=== PATIENT | male | born 1975 | race Caucasian/White ===

== ENCOUNTER 2020-11-10 06:03 | Emergency (ER) | payer OTHER, SELFPAY ==
[2020-11-10 06:13] VITALS: BP 120/78; PULSE 60; RESP 18; TEMP 36.7; O2SAT 98; BMI 38.3
--- NOTE | 2020-11-10 07:04 | ED.EYEPROB ---
HPI - Eye Problem General Chief complaint: Eye Problems Stated complaint: eye pain Time Seen by Provider: 11/10/20 07:04 Source: patient Mode of arrival: ambulatory Limitations: no limitations History of Present Illness chief complaint: eye pain, eye redness, eye injury and foreign body Onset (ago): day(s) (Sunday) Onset description: sudden Duration: constant Location: right eye Eye Symptoms: burning, redness, pain and foreign body sensation Place: home Mechanism: direct trauma Severity: moderate If Pain, Quality: burning Context: trauma Associated symptoms: none Treatments Prior to Arrival: none Related Data Previous Rx's Medication Instructions Recorded erythromycin 5 mg/gram (0.5 %) eye 0.5 inch OPHTHALMIC (EYE) TID #3.5 11/10/20 ointment g Allergies Allergy/AdvReac Type Severity Reaction Status Date / Time No Known Allergies Allergy Verified 11/10/20 06:13 [No Known Allergies*] Review of Systems Review of Systems: Constitutional : No Weight loss, No Fever, No Chills ENT/Mouth : No sore throat, No Rhinorrhea Eyes: No Swelling, pos Redness Cardiovascular : No Chest Pain, No SOB, NoEdema Respiratory : No Cough, No Sputum, No Wheezing Gastrointestinal : no Nausea, no Vomiting, no Diarrhea, positive abdominal Pain, No Hematochezia, No Melena Skin : No Skin Lesions, No rash Neuro : No Weakness, No Numbness, No Dizziness, No Headache PMFSH Past Medical History Attestation statement: The following information was validated with the patient. Medical History No active medical problems Social History Social History (Updated 11/10/20 @ 07:16 by Debbie Masters DO) Patient Tobacco Use Status: Never used Tobacco Advance Directives: No Advance Directives Information Provided: No Physical Exam Vital Signs: Vital Signs: Last Vital Signs Temp 98.0 F 11/10/20 06:13 Pulse 60 11/10/20 06:13 Resp 18 11/10/20 06:13 BP 120/78 11/10/20 06:13 Pulse Ox 98 11/10/20 06:13 Body Mass Index 38.3 Appearance: Alert. Oriented X3. No acute distress. Eyes: Pupils equal, round and reactive to light. R eye injected sclera FB seen to naked eye over 2 o clock position ENT: Pharynx normal. Neck: Normal inspection. Neck supple. CVS: Normal heart rate and rhythm. Pulses normal. Respiratory: No respiratory distress. Breath sounds normal. Abdomen: Soft and nontender Skin: Skin warm and dry. Normal skin color. Normal skin turgor. Extremities: No lower extremity edema. No calf ttp Neuro: Oriented X 3. No motor deficit. No sensory deficit. Course Course Course Narrative: unable to remove metal fragment from R eye - with moistened q tip, retained no rust ring noted will need ophtho MDM - Eye Problem MDM Narrative Medical decision making narrative: 45 yo male with trauma to R eye - no lens wear think it was a FB - at this time will need eye exam denies vision change. dispo per results and exam Discharge Plan Discharge Clinical Impression: Eye foreign body Qualifiers: Encounter type: initial encounter Laterality: right Qualified Code(s): T15.91XA - Foreign body on external eye, part unspecified, right eye, initial encounter Patient Disposition: Home, Self-Care Instructions: Eye Foreign Body (ED) Additional Instructions: there is still a retained piece of metal in your eye you need to see an eye doctor ELLIOTT you can see any eye doctor Prescriptions: New erythromycin 5 mg/gram (0.5 %) ointment 0.5 inch ophthalmic (eye) TID Qty: 3.5 RF: 0 Referrals: Jae Finn MD [Physician] - 1 day (try to call today for any appointment) Stand Alone Forms: Work/School Release
[2020-11-10] MEDS: Tetracaine HCl/PF 0.5% Oph Sol 4 ML DROPS 3 DROP EYE-BOTH (07:30)
[2020-11-10] MEDS: Fluorescein Sodium STRIP 1 STRIP EYE-LEFT (07:31)
[2020-11-10] MEDS: Erythromycin Base 0.5% Oph Oin 1 GM TUBE 1 CM EYE-RIGHT (07:57)
== END 2020-11-10 08:00 | disposition home or self-care (01) ==
PROVIDERS: Emergency Provider Emergency Medicine
DX: H57.13 Ocular pain, bilateral (principal); T15.01XA Foreign body in cornea, right eye, initial encounter; X58.XXXA Exposure to other specified factors, initial encounter; Y93.9 Activity, unspecified; Y92.9 Unspecified place or not applicable; Y99.9 Unspecified external cause status; Z79.899 Other long term (current) drug therapy
CPT/HCPCS: 99283

== ENCOUNTER 2021-12-24 03:49 | Emergency (ER) | payer OTHER, SELFPAY ==
--- NOTE | ~2021-12-24 | XR_ITS ---
EXAMINATION: XR LUMBOSACRAL SPINE CLINICAL INFORMATION: Back pain COMPARISON: None TECHNIQUE: Three views of the lumbosacral spine. FINDINGS: Vertebral body heights and disc spaces are maintained. Mild diffuse spondylosis predominating at the thoracolumbar junction. No malalignment. Nonobstructive gas pattern. Probable vascular calcifications in the pelvis. XR/XR lumbar spine 2-3V IMPRESSION: Mild degenerative disease.
[2021-12-24 04:04] VITALS: BP 137/84; PULSE 86; RESP 16; TEMP 36.7; O2SAT 97; BMI 39.4
--- OUTSIDE RECORDS SUMMARY | 2021-12-24 04:24 | XMS_ITS | Continuity of Care Document ---
:1975 Author Organization [facility] Address [address] [place] [id number]- Care Team Providers Name Role Phone Juan Ballesteros III, MD Primary Care Physician Encounter [facility] [place] Date(s): 11/10/20 - 11/10/[address] [address]- Discharge Disposition: A-D/C Walkout Attending Physician: Not on Staff, Attending MD Admitting Physician: Not on Staff, Admitting MD Referring Physician: Not on Staff, Referring MD Allergies, Adverse Reactions, Alerts Substance Reaction Severity Status NKA Active Immunizations Given and Recorded Vaccine Date Status Refusal Reason tetanus/diphtheria/pertussis, acel(Tdap) 08/08/19 Given Vital Signs Most recent to oldest [Reference Range]: 1 2 Oxygen Saturation [94-100 %] 95 % 100 % (11/10/20 9:34 AM) (11/10/20 9:26 AM) Pulse Rate [55-90 bpm] 85 bpm 88 bpm (11/10/20 9:34 AM) (11/10/20 9:26 AM) Blood Pressure [90-138/55-84 mm Hg] 147/99 mm Hg *H* (11/10/20 9:34 AM) Respiratory Rate [16-30 br/min] 16 br/min (11/10/20 9:34 AM) Temperature [96.8-100.4 DegF] 98.2 DegF (11/10/20 9:34 AM) Mode of Delivery (Oxygen) Room air Room air (11/10/20 9:34 AM) (11/10/20 9:26 AM) Temperature Route Oral (11/10/20 9:34 AM) Social History Social History Type Response Smoking Status Never (less than 100 in life time) entered on: 08/08/19 Sex
--- OUTSIDE RECORDS SUMMARY | 2021-12-24 04:24 | XMS_ITS | Continuity of Care Document ---
:1975 Author Organization [facility] Address [address] [place] [address]- Care Team Providers Name Role Phone Juan Ballesteros III, MD Primary Care Physician Encounter [facility] Date(s): 08/08/19 - 08/08/[address] [address]- [facility] Discharge Disposition: A-D/C Home Attending Physician: Carl Putnam DO Admitting Physician: Carl Putnam DO Referring Physician: Not on Staff, Referring MD Allergies, Adverse Reactions, Alerts Substance Reaction Severity Status NKA Active Immunizations Given and Recorded Vaccine Date Status Refusal Reason tetanus/diphtheria/pertussis, acel(Tdap) 08/08/19 Given Medications Keflex monohydrate 500 mg oral capsule 1 capsule = 500 mg, By Mouth, 4 times a day, for 5 days, # 20 capsule, 0 Refills, Acute 08/13/19 17:12:00 EDT, 08/08/19 17:12:00 EDT, Capsule, [id number], 168, cm, 08/08/19 15:13:00 EDT, Height, 107.3, kg, 08/08/19 15:13:00 EDT, Dry Weight Start Date: 08/08/19 Stop Date: 08/13/19 Status: Ordered Vital Signs Most recent to oldest [Reference Range]: 1 2 Height 168 cm 168 cm (08/08/19 5:39 PM) (08/08/19 3:13 PM) Weight 107.3 kg 107.3 kg (08/08/19 5:39 PM) (08/08/19 3:13 PM) Oxygen Saturation [94-100 %] 99 % (08/08/19 3:13 PM) Pulse Rate [55-90 bpm] 69 bpm (08/08/19 3:13 PM) Blood Pressure [90-138/55-84 mm Hg] 133/80 mm Hg (08/08/19 3:13 PM) Respiratory Rate [16-30 br/min] 16 br/min (08/08/19 3:13 PM) Temperature [96.8-100.4 DegF] 98.4 DegF (08/08/19 3:13 PM) Mode of Delivery (Oxygen) Room air (08/08/19 3:13 PM) Blood pressure sites Arm, left (08/08/19 3:13 PM) Temperature Route Temporal (08/08/19 3:13 PM) Dry Weight 107.3 kg 107.3 kg (08/08/19 5:39 PM) (08/08/19 3:13 PM) Dry Weight Obtained Via Standing scale (08/08/19 3:13 PM) Social History Social History Type Response Smoking Status Never (less than 100 in life time) entered on: 08/08/19 Sex
--- OUTSIDE RECORDS SUMMARY | 2021-12-24 04:24 | XMS_ITS | Continuity of Care Document ---
:1975 Author Organization [facility] Address [address] [place] [address]- Care Team Providers Name Role Phone Favian ZELAYA MD, Juan Stinson Primary Care Physician Encounter [facility] Date(s): 08/19/19 - 08/19/[address] [address]- [facility] Discharge Disposition: A-D/C Home Attending Physician: Marycarmen Sandy MD Admitting Physician: Marycarmen Sandy MD Referring Physician: Not on Staff, Referring MD Allergies, Adverse Reactions, Alerts Substance Reaction Severity Status NKA Active Immunizations Given and Recorded Vaccine Date Status Refusal Reason tetanus/diphtheria/pertussis, acel(Tdap) 08/08/19 Given Vital Signs Most recent to oldest [Reference Range]: 1 Height 168 cm (08/19/19 6:33 AM) Weight 107.4 kg (08/19/19 6:33 AM) Oxygen Saturation [94-100 %] 100 % (08/19/19 6:33 AM) Pulse Rate [55-90 bpm] 78 bpm (08/19/19 6:33 AM) Blood Pressure [90-138/55-84 mm Hg] 126/76 mm Hg (08/19/19 6:33 AM) Respiratory Rate [16-30 br/min] 14 br/min *L* (08/19/19 6:33 AM) Temperature [96.8-100.4 DegF] 98 DegF (08/19/19 6:33 AM) Mode of Delivery (Oxygen) Room air (08/19/19 6:33 AM) Temperature Route Temporal (08/19/19 6:33 AM) Dry Weight 107.4 kg (08/19/19 6:33 AM) Weight Obtained Via Standing scale (08/19/19 6:33 AM) Dry Weight Obtained Via Standing scale (08/19/19 6:33 AM) Social History Social History Type Response Smoking Status Never (less than 100 in life time) entered on: 08/08/19 Sex
[2021-12-24 05:56] VITALS: BP 99/60; PULSE 77; RESP 16; TEMP 37.1; O2SAT 98
[2021-12-24 07:02] VITALS: BP 108/54; PULSE 75; RESP 14; TEMP 36.7; O2SAT 99
--- NOTE | 2021-12-24 07:23 | ED.BACK ---
HPI - Back Pain/Injury General Chief Complaint: Back Pain/Injury Stated Complaint: Back pain Time Seen by Provider: 12/24/21 07:16 Source: patient Mode of arrival: ambulatory Limitations: no limitations History of Present Illness HPI Narrative: This is a very pleasant 46 years old male [place] to [place] emergency department complaining of lower back pain. Pain he is been going on for about a week, worse last night with some radiation in the right lower extremity. He denies any fever, weakness, numbness loss of urine. He denies any major medical problem. MD elicited complaint: back pain Onset (ago): week(s) (1) Timing: constant Severity: moderate Quality: burning Location: lumbar spine Radiation: right leg below the knee Exacerbating factors: none Relieving factors: none Related Data Previous Rx's Medication Instructions Recorded erythromycin 5 mg/gram (0.5 %) eye 0.5 inch ophthalmic (eye) TID #3.5 11/10/20 ointment grams naproxen 500 mg tablet (Naprosyn) 500 mg PO BID PRN PAIN #20 tabs 12/24/21 oxycodone 5 mg tablet 5 mg PO Q6H PRN pain #15 tabs 12/24/21 prednisone 20 mg tablet 40 mg PO DAILY #8 tabs 12/24/21 Allergies Allergy/AdvReac Type Severity Reaction Status Date / Time No Known Allergies Allergy Verified 11/10/20 06:13 [No Known Allergies*] Review of Systems Review of Systems: Yes all other systems are reviewed and are negative ENT: Reports system reviewed and no additional complaints, except as documented Cardiovascular: Cardiovascular: Reports no additional cardiovascular complaints Respiratory: Respiratory: Reports no additional respiratory complaints Musculoskeletal: Musculoskeletal: Reports no additional musculoskeletal complaints Neurologic: Reports system reviewed and no additional complaints, except as documented PMFSH Past Medical History [facility] Narrative: denies Medical History No active medical problems Social History Social History Patient Tobacco Use Status: Never used Tobacco Advance Directives: No Advance Directives Information Provided: Yes Physical Exam Vital Signs: Vital Signs: Last Vital Signs Temp 98.1 F 12/24/21 08:48 Pulse 71 12/24/21 08:48 Resp 12 12/24/21 08:48 BP 116/76 12/24/21 08:48 Pulse Ox 97 12/24/21 08:48 O2 Del Method 12/24/21 08:48 BMI result Body Mass Index 39.4 Const: General: cooperative, healthy appearing, comfortable, no acute distress, well developed and awake Nutritional Appearance: average body habitus Orientation/consciousness: patient oriented x3 Limitations: no limitations HEENT: Head: Yes normal to inspection Face and sinus: Yes normal facial exam Mouth: Normal oral and palatal mucosa present Neck: Neck: Yes normal visual inspection and Yes full ROM Thyroid: Thyroid normal Chest: Chest palpation & inspection: normal inspection of the chest Resp: Effort & Inspection: normal respiratory effort Auscultation: clear to auscultation bilaterally Cardio: Jugular venous distension: no JVD Rate: regular rate Rhythm: regular rhythm GI: Inspection: Yes normal to inspection Palpation (GI): Soft to palpation, nontender and no guarding Back/Spine/Pelvis: Other: Tenderness present in the LS spine, no deficit in strength on the lower extremity no deficit of sensation, reflexes normal Skin: General skin exam: no rashes or lesions noted Neuro: General: patient oriented x3 Cranial nerves: Yes CN's II-XII intact bilaterally Motor exam (neuro): 5/5 motor strength present throughout and strength normal Course Reevaluation(s) Reevaluation #1: I re-examined the patient is doing better, at this point will discharge him home he is neurologically intact Time: 09:12 MDM - Back Pain/Injury Imaging Data LS Spine: Radiologist's impression: CLINICAL INFORMATION: Back pain COMPARISON: None TECHNIQUE: Three views of the lumbosacral spine. FINDINGS: Vertebral body heights and disc spaces are maintained. Mild diffuse spondylosis predominating at the thoracolumbar junction. No malalignment. Nonobstructive gas pattern. Probable vascular calcifications in the pelvis. XR/XR lumbar spine 2-3V IMPRESSION: Mild degenerative disease. Dictated By: Jae Richards MD Signed By: <Electronically signed by Jae Richards MD in OV> 12/24/21 0817 Discharge Plan Discharge Clinical Impression: Lumbar radiculopathy Patient Disposition: Home, Self-Care Instructions: Acute Low Back Pain (ED), Lower Back Exercises (ED) Additional Instructions: Follow-up with your primary care physician take naproxen twice a day and prednisone, oxycodone as needed Prescriptions: New naproxen [Naprosyn] 500 mg tablet 500 mg PO BID PRN (Reason: PAIN) Qty: 20 0RF prednisone 20 mg tablet 40 mg PO DAILY Qty: 8 0RF oxycodone 5 mg tablet 5 mg PO Q6H PRN (Reason: pain) Qty: 15 0RF Rx Instructions: partial filing upon pt request; Partial Fill upon patient request. No Action erythromycin 5 mg/gram (0.5 %) ointment 0.5 inch ophthalmic (eye) TID Qty: 3.5 0RF Referrals: Physician,Peewee J [Primary Care Provider] - 12/27/21 Interventions: ED Discharge Assessment Last Done: 12/24/21 09:31 Discharge Date/Time: 12/24/21 09:34
[2021-12-24] MEDS: Cyclobenzaprine HCl 10 MG TABLET PO (08:03)
[2021-12-24] MEDS: dexAMETHasone 2 MG TABLET 10 MG PO (08:03)
[2021-12-24] MEDS: Ketorolac Tromethamine 60 MG/2 ML VIAL IM (08:03)
[2021-12-24 08:48] VITALS: BP 116/76; PULSE 71; RESP 12; TEMP 36.7; O2SAT 97
== END 2021-12-24 09:34 | disposition home or self-care (01) ==
PROVIDERS: Emergency Provider Emergency Medicine
DX: M54.16 Radiculopathy, lumbar region (principal); M54.50 Low back pain, unspecified; M79.604 Pain in right leg; Z79.899 Other long term (current) drug therapy
CPT/HCPCS: 72100; 96372; 99284; J1885; J8540